=== PATIENT | female | born 1980 | race Caucasian/White ===

== ENCOUNTER 2019-11-27 09:34 | Inpatient (IN) | payer BC, OTHER ==
[2019-11-23 15:49] LABS: BASOPHILS # (AUTO) 0.1 (0.0-0.1); BASOPHILS % 0.8 % (0.0-1.0); EOSINOPHILS # (AUTO) 0.6 (0.0-0.4); EOSINOPHILS % 6.4 % (0.0-6.0); HEMATOCRIT 40.4 % (34.2-44.1); LYMPHOCYTES # (AUTO) 2.7 (1.0-3.2); LYMPHOCYTES % 30.1 % (18.0-39.1); MEAN CORPUSCULAR HEMOGLOBIN 27.1 pg (28-32); MEAN CORPUSCULAR HGB CONC 32.2 g/dL (31-35); MEAN CORPUSCULAR VOLUME 84.3 fL (81-99); MONOCYTES # (AUTO) 0.6 (0.2-0.8); MONOCYTES % 7.1 % (4.4-11.3); NEUTROPHILS # (AUTO) 4.9 (2.1-6.9); NEUTROPHILS % 55.2 % (38.7-80.0); PLATELET COUNT 302 x10e3/uL (140-360); RED BLOOD COUNT 4.79 x10e6/uL (3.6-5.1); RED CELL DISTRIBUTION WIDTH 14.1 % (11.7-14.4)
[2019-11-23 16:06] LABS: ANION GAP 18.8 mmol/L (8-16); BLOOD UREA NITROGEN 10 mg/dL (7-26); BUN/CREATININE RATIO 11 (6-25); CALCIUM 9.8 mg/dL (8.4-10.2); CARBON DIOXIDE 21 mmol/L (22-29); CHLORIDE 104 mmol/L (98-107); CREATININE, SERUM 0.87 mg/dL (0.57-1.11); EST GLOMERULAR FILTRATION RATE > 60 ML/MIN (60-); GLUCOSE 76 mg/dL (74-118); POTASSIUM 4.8 mmol/L (3.5-5.1); SODIUM 139 mmol/L (136-145)
[~2019-11-27] VITALS: Ht 167.6 cm; Wt 133.8 kg
[~2019-11-27 09:34] MED LIST: ALLEGRA ALLERGY60 MG PO; ENSTILAR 0.005%60 GM TOP; HEATHER0.35 MG PO; LATANOPROST2.5 ML PO; METFORMIN HCL500 MG PO; OTEZLA30 MG PO; SPIRONOLACTONE25 MG PO; VENLAFAXINE HCL75 MG PO
[2019-11-27] MEDS ORDERED: CEFAZOLIN SOD 1 GM/NS 50ML 100 ML IV ONE (10:30)
[2019-11-27] MEDS ORDERED: SCOPOLAMINE 1.5 MG PATCH ONE ×2 (10:31→11:15)
[2019-11-27] MEDS ORDERED: LIDOCAINE HCL (LTA) 4 ML SOLN ONE (10:31)
[2019-11-27] MEDS ORDERED: BUPIVACAINE 0.25% 30ML SDV INJ ONE (11:24)
[2019-11-27] MEDS ORDERED: SCOPOLAMINE 1.5 MG PATCH TOP SCH (11:30)
[2019-11-27] MEDS ORDERED: LIDOCAINE HCL 2% JELLY 5 ML TUBE ONE (13:22)
[2019-11-27] MEDS ORDERED: PROPOFOL IV EMULSION 10 MG/ML 20 ML VIAL ONE (13:22)
[2019-11-27] MEDS ORDERED: KETOROLAC TROMETHAMINE 30 MG/ML VIAL ONE (13:22)
[2019-11-27] MEDS ORDERED: GLYCOPYRROLATE INJ 0.2 MG/ML VIAL ONE (13:22)
[2019-11-27] MEDS ORDERED: LIDOCAINE HCL 2% LOCAL INJ 5 ML SDV VIAL INJ ONE (13:22)
[2019-11-27] MEDS ORDERED: SEVOFLURANE INHAL SOLN 250 ML PEN BTL ONE (13:22)
[2019-11-27] MEDS ORDERED: ONDANSETRON HCL INJ 2MG/ML 2ML 2 MG/ML VIAL ONE (13:22)
[2019-11-27] MEDS ORDERED: ROCURONIUM BROMIDE 10 MG/ML 5ML VIAL IV ONE (13:22)
[2019-11-27] MEDS ORDERED: NEOSTIGMINE 1 MG/ML 10ML VIAL ONE (13:22)
[2019-11-27] MEDS ORDERED: DEXAMETHASONE SOD PHOS INJ 4 MG/ML VIAL ONE (13:22)
--- NOTE | 2019-11-27 13:34 | Operative Report ---
DATE OF PROCEDURE: 11/27/2019 SURGEON: Riki Gilbert MD PREOPERATIVE DIAGNOSES: 1. Morbid obesity, BMI 49. 2. Hypertension. POSTOPERATIVE DIAGNOSES: 1. Morbid obesity, BMI 49. 2. Hypertension. PREOPERATIVE INDICATION: Treat disease, prevent complications related to comorbid conditions of obesity. PROCEDURE: Laparoscopic vertical sleeve gastrectomy. ANESTHESIA: General. WOOD CABINET FINISHER: Jacinto Abbasi, surgical 1st visitor service assistant (needed due to complexity of case). FLUIDS: 1 L crystalloid. EBL: 20 mL. DRAINS: None. COMPLICATIONS: None. SPECIMENS: Partial stomach. GRAFTS: None. FINDINGS: 1. Normal upper GI anatomy. 2. Negative intraoperative leak test. PROCEDURE IN DETAIL: The patient was brought to the operating room. She was intubated under general endotracheal anesthesia. She was positioned supine with both arms abducted and all pressure points appropriately padded. She was sterilely prepped and draped in the usual fashion. A preprocedure pause was performed identifying the patient, use of perioperative antibiotics, intended procedure, and staff surgeon. Access was gained via a 5 mm left subcostal incision using a Veress needle. The abdomen was insufflated. Four additional trocars were placed in the standard positions. The liver retractor was used to expose the hiatus and stomach. The greater curvature of the stomach was mobilized using the [place] LigaSure device from about 3 cm proximal to the pyloric valve to the left trung of diaphragm using the [place] LigaSure device. Once that was complete, I then had anesthesia pushed forward a 32-Kiswahili sizing bougie along the lesser curvature of the stomach. The greater curvature of the stomach was then resected with five firings of a 60 mm purple load Human[employer] stapling device which was reinforced with TRS. Once that was completed, we then submerged the sleeve under saline and did a leak test. No leaks were identified. The specimen was removed through the right periumbilical port site. The port site was closed with 0 Vicryl suture using a Andrez Montano technique. We then verified hemostasis, removed the liver retractor and desufflated the abdomen. Trocars were removed. Incision sites were closed with 4-0 Monocryl suture in a subcuticular fashion. Dermabond dressings were applied, 0.25% bupivacaine was used both the preperitoneal incision sites. The patient tolerated the procedure well. Type of wound is type 2, clean, contaminated. All surgical sponge and instrument counts were correct. MD MICAELA Quiles/KEARAL /[id number]
[2019-11-27] MEDS ORDERED: MIDAZOLAM HCL 2 MG/2 ML VIAL ONE (13:37)
[2019-11-27] MEDS ORDERED: FENTANYL CITRATE/PF 100MCG/2 ML INJ ONE ×2 (13:37→13:39)
[2019-11-27] MEDS ORDERED: PROMETHAZINE HCL (IM) 25 MG/ML VIAL IM ONE (13:39)
[2019-11-27] MEDS ORDERED: METOCLOPRAMIDE HCL 10 MG/2ML VIAL ONE (14:03)
[2019-11-27] MEDS ORDERED: HYDROMORPHONE 1MG/1ML INJ ONE (15:18)
--- NOTE | 2019-11-27 15:36 | History and Physical ---
CHIEF COMPLAINT: "I underwent weight loss surgery." HISTORY OF PRESENT ILLNESS: This is a 39-year-old white woman, who was initially admitted to [facility] with diagnosis of extreme obesity, BMI 49, complicated underlying polycystic ovarian disease, and psoriasis. Today, the patient underwent successful laparoscopic vertical sleeve gastrectomy. This was performed by her bariatric surgeon, namely Dr. Riki Gilbert. The patient states at this time she does have some abdominal pain, but it is controllable with medications. The patient denies any nausea or vomiting. The patient denies any belching or flatus. Hemoglobin performed on November 23, 2019, was 13 g/dL with white blood cell count of 8900 and 55% segmented neutrophils. The patient's BUN and creatinine were 10 and 0.87 respectively on November 23, 2019. REVIEW OF SYSTEMS: GENERAL: Weight has been stable. No fever or chills. HEENT: No headaches. No visual changes. CARDIOVASCULAR/RESPIRATORY: No chest pain. No shortness of breath or cough. GI: Complains of some abdominal pain. Denies any nausea or vomiting. Denies any belching or flatus. : No Gilbert catheter in place. NEUROMUSCULAR: Denies any limb weakness or numbness. ALLERGIES: TOPICAL BENZOIN. PAST SURGICAL HISTORY: 1. Laparoscopic vertical sleeve gastrectomy today. 2. section twice. 3. Laparoscopic cholecystectomy. PAINTER HELPER: History no gestational diabetes or preeclampsia during her two pregnancies. PAST MEDICAL HISTORY: 1. Extreme obesity, BMI 49. 2. Polycystic ovarian disease. 3. Psoriasis. 4. Depression with anxiety .. FAMILY HISTORY: Sister of carcinoma of unknown origin. SOCIAL HISTORY: This woman is , lives with . 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 No history of tobacco use. The patient drinks alcohol rarely. MEDICATIONS: 1. Otezla 30 mg b.i.d. 2. Enstilar 0.005%/0.064% apply topically at night. 3. Fexofenadine 60 mg daily. 4. Latanoprost 2.5 drops once daily. 5. Metformin 1000 mg b.i.d. 6. Oral contraceptives (norethindrone) 0.35 mg p.o. at bedtime. 7. Spironolactone 100 mg once daily (for her male pattern balding). 8. Venlafaxine 150 mg daily. PHYSICAL EXAMINATION: GENERAL: She is somnolent, but arousable. She is in no obvious distress. She is fully oriented. She is very pleasant and cooperative on exam. HEENT: Height 5 feet, 5 inches, weight 295 pounds, BMI is 49. Blood pressure is 136/56, heart rate 104, and oxygen saturation 100% on room air. She is afebrile. Respiratory rate is 16. INTEGUMENT: Skin is warm and dry. No pallor, jaundice, or diaphoresis. HEENT: Anicteric sclerae. Moist mucous membranes. NECK: Supple. CARDIOVASCULAR: Tachycardic rate with regular rhythm. LUNGS: No rales. No rhonchi. No wheezes. ABDOMEN: Obese. No bowel sounds are auscultated. The patient's laparoscopic surgical incisions are clean, dry, and intact. EXTREMITIES: No edema or deformity. She is currently wearing sequential compression devices in her lower legs. NEUROLOGICAL: Intact. DIAGNOSES: 1. Status post laparoscopic sleeve gastrectomy today. 2. Extreme obesity, BMI 49. 3. Polycystic ovarian disease. 4. Psoriasis. PLAN: 1. Pain control. 2. Encourage incentive spirometry usage to prevent atelectasis. 3. Resume home medications. 4. Intravenous fluids. 5. Start enoxaparin to prevent deep venous thrombosis and pulmonary thromboembolism. 6. Follow hemoglobin and hematocrit as well as renal function and electrolytes. I spent 45 minutes in the care of this patient. I would like to thank, Dr. Gilbert, for involving me in the care of this patient. MD SANYA Go/SINAN /[id number]
--- NOTE | 2019-11-27 16:45 | NUR ---
RECEIVED PATIENT FROM PACU. PATIENT A/O X3, EVEN RESPIRATIONS ON 2LNC. NO S/S OF DISTRESS. 5 TROCAR SITES TO ABDOMEN NO DRAINAGE. MARIA M HOSE AND SCD's BILATERALLY. LEFT AC 20 GAUGE IV WITH IVF INFUSING. PATIENT HAS VOIDED SINCE SURGERY. ORIENTED PATIENT TO ROOM AND CALL LIGHT. CALL LIGHT IN REACH WILL CONTINUE TO MONITOR PATIENT.
--- OUTSIDE RECORDS SUMMARY | 2019-11-27 17:08 | XMS REPORT | Continuity of Care Document ---
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 [facility], ANKIT haskins BRONCHITIS Inactive 02/28/2013 Condition 12/16/2013 [facility] PHYSICAL EXAMINATION Active 01/02/2013 Condition 12/16/2013 [facility] Body mass index 40+ - severely obese (finding) Active Problem 09/30/2019 [facility] Group, ANKIT [place]ata Morbid obesity (disorder) Acti ve Problem [facility], [facility], OPIMelissa Plata Polycystic ovaries (disorder) [facility] [place] Migraine (disorder) Resolved Problem 09/30/2019 Medical [facility] [place] Respiratory tract infection (disorder) Active Problem Medical Group, ANKIT Plata Medications Medication Details Route Status Patient Instructions Ordering Provider Order Date Source venlafaxine 150 mg oral capsule, extended release 150 mg = 1 cap, PO, Daily, # 90 cap, 1 Refill(s), Pharmacy: [facility], 167.64, cm, 04/20/19 16:25:00 PATIENT SERVICE ASSOCIATE, Height, 132.273, kg, 04/20/19 16:25:00 PATIENT SERVICE ASSOCIATE, Weight Active 09/27/2019 [facility] Amoxicillin 875 MG / Clavulanate 125 MG Oral Tablet [Augmentin 875-mg] 875 mg = 1 tab, PO, BID, X 10 day, # 20 tab, 0 Refill(s), Pharmacy: [facility]/pharmacy #[id number] Active 04/20/2019 [facility] Dextromethorphan 3 MG/ML / Promethazine Hydrochloride 1.25 MG/ML Oral Solution 5 mL, PO, Q4H, PRN for cough, X 6 day, # 200 mL, 1 Refill(s), Pharmacy: [facility]/pharmacy #[id number] Active 04/20/2019 [facility] Amoxicillin 875 MG / Clavulanate 125 MG Oral Tablet [Augmentin 875-mg] 875 mg = 1 tab, PO, BID, X 10 day, # 20 tab, 0 Refill(s), Pharmacy: [facility] Inactive 04/20/2019 [facility] Dextromethorphan 3 MG/ML / Promethazine Hydrochloride 1.25 MG/ML Oral Solution 5 mL, PO, Q4H, PRN for cough, X 6 day, # 200 mL, 1 Refill(s), Pharmacy: [facility] Inactive 04/20/2019 [facility] metFORMIN 500 mg oral tablet, extended release = 2 tab, PO, BID, # 360 tab, 4 Refill(s), Pharmacy: [facility] Active 02/24/2019 [facility] venlafaxine 150 mg oral capsule, extended release 150 mg = 1 cap, PO, Daily, # 90 cap, 1 Refill(s), Pharmacy: [facility] Active 02/24/2019 [facility] Group apremilast 30 MG Oral Tablet [Otezla] 30 mg = 1 tab, PO, BID, 0 Refill(s) Active 02/24/2019 [facility] Group spironolactone 100 mg oral tablet 100 mg = 1 tab, PO, Daily, # 90 tab, 1 Refill(s) Active 02/24/2019 [facility] venlafaxine 150 mg oral capsule, extended release See Instructions, TAKE 1 CAPSULE DAILY, # 90 tab, 1 Refill(s), Pharmacy: [facility] Active 12/19/2018 [facility] Metformin hydrochloride 500 MG Oral Tablet 1,000 mg = 2 tab, PO, BID, # 180 tab, 1 Refill(s), Pharmacy: [facility] Active 05/25/2018 [facility] venlafaxine 150 mg oral capsule, extended release See Instructions, TAKE 1 CAPSULE DAILY, # 90 tab, 1 Refill(s), Pharmacy: [facility] Active 05/25/2018 [facility] Paroxetine Hydrochloride 20 MG Oral Tablet = 1 tab, PO, Daily, # 90 tab, 1 Refill(s), Pharmacy: [facility] Active 05/25/2018 [facility] Paroxetine Hydrochloride 20 MG Oral Tablet = 1 tab, PO, Daily, # 90 tab, 1 Refill(s), Pharmacy: [facility]/pharmacy #[id number] No Longer Active 05/06/2018 [facility] Fluticasone propionate 0.05 MG/ACTUAT Me tered Dose Nasal [place] 2 spray, NASAL, Daily, in each nostril, # 16 gm, 2 Refill(s), Pharmacy: [facility]/pharmacy #[id number] Active 03/11/2018 [facility] Group 24 HR lorcaserin hydrochloride 20 MG Ext ended Release Oral Tablet [Belviq] 20 mg = 1 tab, PO, Daily, # 90 tab, 1 Re fill(s) Active 03/11/2018 [facility] Paroxetine 20 MG Oral Tablet [Paxil] 20 mg = 1 tab, PO, Daily, # 30 tab, 1 Refill(s), Pharmacy: [facility]/pharmacy #[id number] No Longer Active 03/11/2018 [facility] cefdinir 300 MG Oral Capsule 3 00 mg = 1 cap, PO, BID, X 10 day, # 20 cap, 0 Refill(s), Pharmacy: [facility]/pharmacy #[id number] No Longer Active 02/15/2018 [facility] Codeine Phosphate 2 MG/ML / Guaifenesin 20 MG/ML Oral Solution [Cheratussin] 5 mL, PO, Q6H, PRN cough, X 6 day, # 120 mL, 0 Refill(s) No Longer Active 02/14/2018 [facility] 200 ACTUAT Albuterol 0.09 MG/ACTUAT Mete red Dose Inhaler [ProAir HFA] 2 puff, INHALER, Q4H, PRN wheezing, coug emilia, or shortness of breath, # 1 ea, 1 Refill(s), other Inactive 02/14/2018 [facility] 120 ACTUAT Beclomethasone Dipropionate 0 .08 MG/ACTUAT Metered Dose Inhaler [Qvar] 160 microgram = 2 inhalation, PO, BID, # 1 ea, 0 Refill(s), other Active 02/14/2018 [facility] DME Prescription See Jocelynei ANIBAL michelleC, ONCE, adjustable bed frame to improve low back pain, # 1 ea, 0 Refill(s) Active 10/27/2017 [facility] 3 ML liraglutide 6 MG/ML Prefilled Syringe [Saxenda] 1.2 mg, SUB-Q, Daily, # 6 mL, 3 Refill(s), Pharmacy: [facility]/pharmacy #[id number] Active 08/11/2017 [facility] {21 (Methylprednisolone 4 MG Oral Tablet [Medrol]) } Pack [Medrol Dosepak] See Instructions, PO, Take by mouth as d irected on label., # 1 Pack, 0 Refill(s), Pharmacy: [facility]/pharmacy #[id number] No Longer Active 06/25/2017 [facility] 200 ACTUAT Albuterol 0.09 MG/ACTUAT Mete red Dose Inhaler [ProAir HFA] 2 puff, INHALER, Q6H, PRN wheezing, coug emilia, or shortness of breath, # 1 ea, 1 Refill(s), Pharmacy: [facility]/pharmacy #[id number] Active 06/25/2017 [facility] Codeine Phosphate 2 MG/ML / Guaifenesin 20 MG/ML Oral Solution [Cheratussin] 5 mL, PO, Q6H, PRN cough, X 6 day, # 120 mL, 0 Refill(s) No Longer Active 06/25/2017 [facility] Amoxicillin 875 MG / Clavulanate 125 MG Oral Tablet [Augmentin 875-mg] 875 mg = 1 tab, PO, Q12H, X 10 day, # 20 tab, 0 Refill(s), Pharmacy: [facility]/pharmacy #[id number] No Longer Active 06/21/2017 [facility] {28 (Norethindrone 0.35 MG Oral Tablet) } Pack [Alyson 28 Day] 0.35 mg = 1 tab, PO, Daily, 0 Refill(s) Active 06/21/2017 [facility] Sudafed PO, Q6H, 0 Refill(s) Active 06/21/2017 [facility] azithromycin 250 mg oral tablet See Instructions, Take 2 tablets by mouth the first day then 1 tablet by mouth daily on days 2-5., X 5 day, # 6 tab, 0 Refill(s), Pharmacy: [facility]/pharmacy #[id number] No Longer Active 05/20/2017 [facility] Depo-Medrol 80 mg, Route: IM, Drug form: SUSP, ONCE, Dosing Weight 131.051, kg, Start date: 05/20/17 9:37:00 PATIENT SERVICE ASSOCIATE, Stop date: 05/20/17 9:37:00 PATIENT SERVICE ASSOCIATE Inactive 05/20/2017 [facility] Codeine Phosphate 2 MG/ML / Guaifenesin 20 MG/ML Oral Solution [Cheratussin] 5 mL, PO, Q6H, PRN cough, X 6 day, # 120 mL, 0 Refill(s) No Longer Active 05/20/2017 [facility] Phentermine Hydrochloride 37.5 MG Oral Tablet 37.5 mg = 1 tab, PO, Daily, # 30 tab, 0 Refill(s) No Longer Active 05/20/2017 [facility] Spironolactone 25 mg = 2 tab, PO, Daily, # 60 tab, 0 Refill(s) No Longer Active 05/20/2017 [facility] lorcaserin hydrochloride 10 MG Oral Tablet [Belviq] 10 mg = 1 tab, PO, BID, # 60 tab, 1 Refill(s) No Longer Active 04/23/2017 [facility] Phentermine Hydrochloride 37.5 MG Oral Tablet 37.5 mg = 1 tab, PO, Daily, X 30 day, # 90 tab, 1 Refill(s) No Longer Active 04/02/2017 [facility] Dexamethasone 8 mg, Route: IV, POST OP, Dosing Weight 127.273, kg, Start date: 01/27/16 12:00:00 PATIENT SERVICE ASSOCIATE Inactive 01/27/2016 [facility] Promethazine 6.25 mg, Route: I VPB, ONCE, Dosing Weight 127.273, kg, PRN Nausea & Vomiting, Start date: 01/27/16 11:45:00 PATIENT SERVICE ASSOCIATE Inactive 01/27/2016 [facility] Dexamethasone 4 mg, Route: IVP , ONCE, Dosing Weight 127.273, kg, PRN Nausea & Vomiting, Start date: 01/27/16 11:45:00 PATIENT SERVICE ASSOCIATE Inactive 01/27/2016 [facility] Ondansetron 4 mg, Route: IVP, ONCE, Dosing Weight 127.273, kg, PRN Nausea & Vomiting, Start date: 01/27/16 11:45:00 PATIENT SERVICE ASSOCIATE Inactive 01/27/2016 [facility] Oxycodone 10 mg, Route: PO, Dr ug form: TAB, Q4H, Dosing Weight 127.273, kg, PRN Pain Score 7-10, Start date: 01/27/16 11:45:00 PATIENT SERVICE ASSOCIATE, Duration: 30 day, Stop date: 02/26/16 11:44:00 PATIENT SERVICE ASSOCIATE Inactive 01/27/2016 [facility] Acetaminophen 1,000 mg, Route: PO, Drug form: TAB, ONCE, Dosing Weight 127.273, kg, PRN Pain Score 1-3, Start date: 01/27/16 11:45:00 PATIENT SERVICE ASSOCIATE, Duration: 1 doses or times, Stop date: Limited # of times Inactive 01/27/2016 [facility] Naloxone 0.4 mg, Route: IVP, Q 2MIN, Dosing Weight 127.273, kg, PRN Narcotic Reversal, Start date: 01/27/16 11:45:00 PATIENT SERVICE ASSOCIATE, Duration: 8 doses or times, Stop date: Limited # of times Inactive 01/27/2016 [facility] Labetalol 10 mg, Route: IVP, Q 5Min, Dosing Weight 127.273, kg, PRN Elevated BP, Start date: 01/27/16 11:45:00 PATIENT SERVICE ASSOCIATE, Duration: 5 doses or times, Stop date: Limited # of times Inactive 01/27/2016 [facility] esmolol 10 mg, Route: IVP, Q5M in, Dosing Weight 127.273, kg, PRN Other -See Comment, Start date: 01/27/16 11:45:00 PATIENT SERVICE ASSOCIATE, Duration: 5 doses or times, Stop date: Limited # of times Inactive 01/27/2016 [facility] Hydralazine 10 mg, Route: IVP, Q20Min, Dosing Weight 127.273, kg, PRN Elevated BP, Start date: 01/27/16 11:45:00 PATIENT SERVICE ASSOCIATE, Duration: 2 doses or times, Stop date: Limited # of times Inactive 01/27/2016 [facility] Sodium Chloride 0.154 MEQ/ML Injectable Solution 500 mL, Rate: 125 ml/hr, Infuse over: 4 hr, Route: IV, Dosing Weight 127.273 kg, Total Volume: 500, Start date: 01/27/16 11:45:00 PATIENT SERVICE ASSOCIATE, Duration: 30 day, Stop date: 02/26/16 11:44:00 PATIENT SERVICE ASSOCIATE Inactive 01/27/2016 [facility] Meperidine 12.5 mg, Route: IVP , Q30Min, Dosing Weight 127.273, kg, PRN Other -See Comment, For shivering, Start date: 01/27/16 11:45:00 PATIENT SERVICE ASSOCIATE, Duration: 2 doses or times, Stop date: Limited # of times Inactive 01/27/2016 [facility] Diphenhydramine 12.5 mg, Route : IVP, Drug form: INJ, Q6H, Dosing Weight 127.273, kg, PRN Itching, Start date: 01/27/16 11:45:00 PATIENT SERVICE ASSOCIATE, Duration: 30 day, Stop date: 02/26/16 11:44:00 PATIENT SERVICE ASSOCIATE Inactive 01/27/2016 [facility] Flumazenil 0.2 mg, Route: IVP, PRN, Dosing Weight 127.273, kg, PRN Benzodiazepine Reversal, Initial dose, Start date: 01/27/16 11:45:00 PATIENT SERVICE ASSOCIATE, Duration: 30 day, Stop date: 02/26/16 11:44:00 PATIENT SERVICE ASSOCIATE Inactive 01/27/2016 [facility] Hydromorphone 0.5 mg, Route: I SENIOR INVESTMENT MANAGER, Q5Min, Dosing Weight 127.273, kg, PRN Pain Score 7-10, Start date: 01/27/16 11:45:00 PATIENT SERVICE ASSOCIATE, Duration: 4 doses or times, Stop date: Limited # of times Inactive 01/27/2016 [facility] Calcium Chloride 0.0014 MEQ/ML / Potassi um Chloride 0.004 MEQ/ML / Sodium Chloride 0.103 MEQ/ML / Sodium Lactate 0.028 MEQ/ML Injectable Solution 1,000 mL, Rate: 125 ml/hr, Infuse over: 8 hr, Route: IV, Dosing Weight 127.273 kg, Total Volume: 1,000, Start date: 01/27/16 11:45:00 PATIENT SERVICE ASSOCIATE, Duration: 30 day, Stop date: 02/26/16 11:44:00 PATIENT SERVICE ASSOCIATE Inactive 01/27/2016 [facility] acetaminophen (ANES) Route: IV , Drug form: INJ, ONCE, Stop date: 01/27/16 11:05:00 PATIENT SERVICE ASSOCIATE Inactive 01/27/2016 [facility] cefOXitin (ANES) Route: IV, Dr ug form: INJ, ONCE, Stop date: 01/27/16 11:05:00 PATIENT SERVICE ASSOCIATE Inactive 01/27/2016 [facility] Acetaminophen 300 MG / Codeine Phosphate 30 MG Oral Tablet [Tylenol with Codeine #3] 1 tab, PO, Q6H, PRN pain, X 7 day, # 28 tab, 0 Refill(s) Active 01/27/2016 [facility] Docusate Sodium 100 MG Oral Capsule [Colace] 100 mg = 1 cap, PO, BID, PRN Constipation, # 20 cap, 0 Refill(s), Pharmacy: [facility]/pharmacy #[id number] Active 01/27/2016 [facility] neostigmine (ANES) Route: IV, Drug form: INJ, ONCE, Stop date: 01/27/16 11:05:00 PATIENT SERVICE ASSOCIATE Inactive 01/27/2016 [facility] glycopyrrolate (ANES) Route: I V, Drug form: INJ, ONCE, Stop date: 01/27/16 11:05:00 PATIENT SERVICE ASSOCIATE Inactive 01/27/2016 [facility] phenylephrine (ANES) Route: IV , Drug form: INJ, ONCE, Stop date: 01/27/16 11:05:00 PATIENT SERVICE ASSOCIATE Inactive 01/27/2016 [facility] ondansetron (ANES) Route: IV, Drug form: INJ, ONCE, Stop date: 01/27/16 11:05:00 PATIENT SERVICE ASSOCIATE Inactive 01/27/2016 [facility] scopolamine (ANES) Route: RIGH T EAR, Drug form: ERFILM, ONCE, Stop date: 01/27/16 11:05:00 PATIENT SERVICE ASSOCIATE Inactive 01/27/2016 [facility] ketOROLAC (ANES) IV, ONCE Inactive 01/27/2016 [facility] fentaNYL (ANES) Route: IV, Mark g form: INJ, ONCE, Stop date: 01/27/16 11:04:00 PATIENT SERVICE ASSOCIATE Inactive 01/27/2016 [facility] lidocaine (ANES) Route: IV, Dr ug form: INJ, ONCE, Stop date: 01/27/16 11:04:00 PATIENT SERVICE ASSOCIATE Inactive 01/27/2016 [facility] propofol (ANES) Route: IV, Mark g form: INJ, ONCE, Stop date: 01/27/16 11:04:00 PATIENT SERVICE ASSOCIATE Inactive 01/27/2016 [facility] rocuronium (ANES) Route: IV, D rug form: INJ, ONCE, Stop date: 01/27/16 11:04:00 PATIENT SERVICE ASSOCIATE Inactive 01/27/2016 [facility] midazolam (ANES) Route: IV, Dr ug form: SOLN, ONCE, Stop date: 01/27/16 11:04:00 PATIENT SERVICE ASSOCIATE Inactive 01/27/2016 [facility] LR 1000 mL INJ (ANES) Route: I V, Total Volume: 1,000, Start date: 01/27/16 10:10:00 PATIENT SERVICE ASSOCIATE, Stop date: 01/27/16 11:10:00 PATIENT SERVICE ASSOCIATE Inactive 01/27/2016 [facility] Albuterol 0.833 MG/ML / Ipratropium Brom geena 0.167 MG/ML Inhalant Solution Notes: (Same as: Linette) Inactive 01/27/2016 [facility] Calcium Chloride 0.0014 MEQ/ML / Potassi um Chloride 0.004 MEQ/ML / Sodium Chloride 0.103 MEQ/ML / Sodium Lactate 0.028 MEQ/ML Injectable Solution 1,000 mL, Rate: 25 ml/hr, Infuse over: 4 0 hr, Route: IV, Dosing Weight 127.273 kg, Total Volume: 1,000, Start date: 01/27/16 8:40:00 PATIENT SERVICE ASSOCIATE, Duration: 1 day, Stop date: 01/28/16 8:39:00 PATIENT SERVICE ASSOCIATE Inactive 01/27/2016 [facility] Sodium Chloride 0.154 MEQ/ML Injectable Solution 500 mL, Rate: 25 ml/hr, Infuse over: 20 hr, Route: IV, Dosing Weight 127.273 kg, Total Volume: 500, Start date: 01/27/16 8:40:00 PATIENT SERVICE ASSOCIATE, Duration: 1 day, Stop date: 01/28/16 8:39:00 PATIENT SERVICE ASSOCIATE Inactive 01/27/2016 [facility] TH VITAMINS 28-0.8 MG TABS Active 12/16/2013 [facility] CLOTRIMAZOLE 10 MG TROC one 5 x a day sorethroat Active 12/16/2013 [facility] ZITHROMAX Z-CHANDA 250 MG TABS us e as directed No Longer Active 02/28/2013 [facility] GLUCOPHAGE XR 500 MG [id number] 4 po daily No Longer Active 02/28/2013 [facility] TUSSIONEX PENNKINETIC ER 8-10 MG/5ML LQCR 1 tsp PO qhs prn cough No Longer Active 02/28/2013 [facility] Allergies, Adverse Reactions, Alerts Substance Category Reaction Severity Reaction type Status Date Reported Comments Source Tape Assertion Drug allergy Active [facility] Immunizations Immunization Date Given Site Status Last Updated Comments Source Hx influenza vaccine-unspecified 11/21/2018 completed W atts [facility] hepatitis A-hepatitis B vaccine 04/02/2017 Right deltoid completed Alf[facility], [facility] [place] hepatitis A-hepatitis B vaccine<sup>1</sup> 10/07/2016 Right deltoid completed Alfie Result Comment: No react ion [facility], [facility] [place] hepatitis A-hepatitis B vaccine 09/08/2016 Left deltoid completed [facility] Results Order Name Results Value Reference Range Date Interpretation Comments Source URINE CHEM U Preg Negat cuate (01/27/16 8:32 AM) Negative 01/27/2016 [facility] CHEM PANEL B/C Ratio 8 6 - 25 01/21/2016 [facility] CHEM PANEL AGAP 11.0 10.0 - 20.0 01/21/2016 [facility] CHEM PANEL Globulin 4.1 2.7 - 4.2 01/21/2016 [facility] CHEM PANEL A/G Ratio 0.8 0.7 - 1.6 01/21/2016 [facility] CHEM PANEL eGFR 96 01/21/2016 Result Comment: The eGFR is calculated using the CKD-EPI formula. In most young, healthy individuals the eGFR will be >90 mL/min/1.73m2. The eGFR declines with age. An eGFR of 60-89 may be normal in some populations, particularly the elderly, for whom the CKD-EPI formula has not been extensively validated. Use of the eGFR is not recommended in the following populations:

Individuals with unstable creatinine concentrations, including patients and those with serious co-morbid conditions.

Patients with extremes in muscle mass or diet.

The data above are obtained from the National Kidney Disease Education Program (NKDEP) which additionally recommends that when the eGFR is used in patients with extremes of body mass index for purposes of drug dosing, the eGFR should be multiplied by the estimated BMI. [facility] CHEM PANEL Bili Total 0.3 0.2 - 1.3 01/21/2016 [facility] CHEM PANEL Alk Phos 95 39 - 136 01/21/2016 [facility] CHEM PANEL AST 19 0 - 37 01/21/2016 [facility] CHEM PANEL ALT 64 0 - 65 01/21/2016 [facility] CHEM PANEL Albumin Lvl 3.2 3.5 - 5.0 01/21/2016 [facility] CHEM PANEL Glucose Lvl 75 70 - 99 01/21/2016 [facility] CHEM PANEL CO2 26 24 - 32 01/21/2016 [facility] CHEM PANEL Calcium Lvl 8.1 8.5 - 10.5 01/21/2016 [facility] CHEM PANEL Total Protein 7.3 6.4 - 8.4 01/21/2016 [facility] CHEM PANEL Chloride Lvl 105 95 - 109 01/21/2016 [facility] CHEM PANEL Sodium Lvl 138 135 - 145 01/21/2016 [facility] CHEM PANEL Potassium Lvl 4.0 3.5 - 5.1 01/21/2016 [facility] CHEM PANEL BUN 6 7 - 22 01/21/2016 [facility] CHEM PANEL Creatinine Lvl 0.80 0.50 - 1.40 01/21/2016 [facility] ENDOCRINOLOGY S Preg Ne gative *NA* (01/21/16 2:48 PM) Negative 01/21/2016 [facility] HEMATOLOGY MPV 8.1 7.4 - 10.4 01/21/2016 [facility] MCHC 32.4 32.0 - 36.0 01/21/2016 [facility] HEMATOLOGY MCH 27.7 27.0 - 31.0 01/21/2016 [facility] HEMATOLOGY MCV 85.4 80.0 - 98.0 01/21/2016 [facility] HEMATOLOGY Platelet 240 133 - 450 01/21/2016 [facility] HEMATOLOGY RDW 13.9 11.5 - 14.5 01/21/2016 [facility] HEMATOLOGY WBC 8.7 3.7 - 10.4 01/21/2016 [facility] HEMATOLOGY Hgb 13.5 12.0 - 16.0 01/21/2016 [facility] HEMATOLOGY Hct 41.7 36.0 - 48.0 01/21/2016 [facility] HEMATOLOGY RBC 4.89 4.20 - 5.40 01/21/2016 [facility] HEMATOLOGY Segs 66.3 45.0 - 75.0 01/21/2016 [facility] HEMAT[facility]Y Monocytes 6.4 2.0 - 12.0 01/21/2016 [facility] HEMAT[facility]Y Eosinophils 2.2 0.0 - 4.0 01/21/2016 [facility] HEMATOLOGY Lymphocytes 24.6 20.0 - 40.0 01/21/2016 [facility] HEMATOLOGY Lymphocytes # 2.1 1.0 - 5.5 01/21/2016 [facility] HEMAT[facility] Eosinophils # 0.2 0.0 - 0.5 01/21/2016 [facility] HEMATOLOGY Monocytes # 0.6 0.0 - 0.8 01/21/2016 [facility] HEMATOLOGY Basophils 0.5 0.0 - 1.0 01/21/2016 [facility] HEMATOLOGY Segs-Bands # 5.8 1.5 - 8.1 01/21/2016 [facility] CHOLESTEROL 170 - 199 01/02/2013 [facility] TRIGLYCERIDE 209 - 149 01/02/2013 [facility] HDL 55 >=61 01/02/2013 [facility] SODIUM 141 MEQ/L 135 - 145 01/02/2013 [facility] POTASSIUM 4.6 MEQ/L 3.5 - 5.1 01/02/2013 [facility] CREATININE 0.7 0.5 - 1.4 01/02/2013 [facility] BUN 10 7 - 22 01/02/2013 [facility] BUN/CREAT 14 6 - 25 01/02/2013 [facility] ALBUMIN 3.6 3.5 - 5.0 01/02/2013 [facility] CALCIUM 9.7 8.5 - 10.5 01/02/2013 [facility] SGPT (ALT) 17 0 - 65 01/02/2013 [facility] SGOT (AST) 18 0 - 37 01/02/2013 [facility] ALK PHOS 91 39 - 136 01/02/2013 [facility] TSH 1.970 0.360 - 3.740 01/02/2013 [facility] CHOLESTEROL 170 - 199 01/02/2013 [facility] TRIGLYCERIDE 209 - 149 01/02/2013 [facility] HDL 55 >=61 01/02/2013 [facility] SODIUM 141 MEQ/L 135 - 145 01/02/2013 [facility] POTASSIUM 4.6 MEQ/L 3.5 - 5.1 01/02/2013 [facility] CREATININE 0.7 0.5 - 1.4 01/02/2013 [facility] BUN 10 7 - 22 01/02/2013 [facility] BUN/CREAT 14 6 - 25 01/02/2013 [facility] ALBUMIN 3.6 3.5 - 5.0 01/02/2013 [facility] CALCIUM 9.7 8.5 - 10.5 01/02/2013 [facility] SGPT (ALT) 17 0 - 65 01/02/2013 [facility] SGOT (AST) 18 0 - 37 01/02/2013 [facility] ALK PHOS 91 39 - 136 01/02/2013 [facility] TSH 1.970 0.360 - 3.740 01/02/2013 [facility] CHOLESTEROL 170 - 199 01/02/2013 [facility] TRIGLYCERIDE 209 - 149 01/02/2013 [facility] HDL 55 >=61 01/02/2013 [facility] LDL 73 - 99 01/02/2013 [facility] SODIUM 141 MEQ/L 135 - 145 01/02/2013 [facility] POTASSIUM 4.6 MEQ/L 3.5 - 5.1 01/02/2013 [facility] CREATININE 0.7 0.5 - 1.4 01/02/2013 [facility] BUN 10 7 - 22 01/02/2013 [facility] BUN/CREAT 14 6 - 25 01/02/2013 [facility] ALBUMIN 3.6 3.5 - 5.0 01/02/2013 [facility] CALCIUM 9.7 8.5 - 10.5 01/02/2013 [facility] SGPT (ALT) 17 0 - 65 01/02/2013 [facility] SGOT (AST) 18 0 - 37 01/02/2013 [facility] ALK PHOS 91 39 - 136 01/02/2013 [facility] TSH 1.970 0.360 - 3.740 01/02/2013 [facility] H[facility]ology HGB 12.2 12.0 - 16.0 01/02/2013 [facility] H[facility]ology HCT 35.8 36.0 - 48.0 01/02/2013 [facility] Hematology PLATELETS 383 K/CMM 133 - 450 01/02/2013 [facility] Hematology HGB 12.2 12.0 - 16.0 01/02/2013 [facility] Hematology HCT 35.8 36.0 - 48.0 01/02/2013 [facility] Hematology PLATELETS 383 K/CMM 133 - 450 01/02/2013 [facility] Hematology HGB 12.2 12.0 - 16.0 01/02/2013 [facility] Hematology HCT 35.8 36.0 - 48.0 01/02/2013 [facility] Hematology PLATELETS 383 K/CMM 133 - 450 01/02/2013 [facility] Urinalysis UA COLOR Yellow 01/02/2013 [facility] Urinalysis BACTERIA URN Few 01/02/2013 [facility] Urinalysis UA COLOR Yellow 01/02/2013 [facility] Urinalysis BACTERIA URN Few 01/02/2013 [facility] Urinalysis UA COLOR Yellow 01/02/2013 [facility] Urinalysis BACTERIA URN Few 01/02/2013 [facility] Pathology Reports No Data Provided for This Section Diagnostic Reports Report Value Date Source Hand 2 views Bilateral DX Clin ical Indication: - M25.50 Pain in unspecified joint Comparison: None FINDINGS: The 2 views each of the bilateral hands show normal alignment without fractures or dislocations. The digit and thumb interphalangeal joints are unremarkable. The metacarpophalangeal joints are unremarkable. The carpometacarpal joint regions are unremarkable. There is no soft tissue swelling or radiopaque foreign bodies. The visualized wrist region is grossly unremarkable. If there is further concern, recommend follow-up radiographs or bone scan for complete assessment. IMPRESSION: Unremarkable radiographs of the bilateral hands. SL: [id number] 08/19/2018 [facility] Spine lumbar 2 or 3 views DX S tudy: Lumbar spine, 3 views Clinical Indication: - M25.50 Pain in unspecified joint Comparison: None FINDINGS: Multiple views of the lumbar spine show 5 nonrib-bearing lumbar vertebra. No acute compression fracture or subluxation is seen. Mild marginal osteophytes with mild disc height loss throughout the lumbar spine are present, compatible with mild degenerative disc disease. Surgical clips in the right upper quadrant are seen. IMPRESSION: Mild degenerative disc disease throughout the lumbar spine. SL: [id number] 08/19/2018 [facility] Hip bilat w pelvis 3/4 views DX Patient Name: BALTAZAR MCCLURE : 1980; Age: 38 years y/o Female MR: [id number] BILATERAL HIPS AND PELVIS * RIGHT HIP (2 views) with frontal PELVIS History: right hip pain; Technique: Frontal neutral and frog-leg images of the right hip and a frontal radiograph of the pelvis were obtained. FINDINGS: There is no evidence of fracture, dislocation, or acute change. The joint space is well-maintained. There are no degenerative changes or other significant osseous abnormalities. The pelvic ring is intact. IMPRESSION: 1. Negative right hip and pelvis. * LEFT HIP (2 views) with frontal PELVIS History: left hip pain; Technique: Frontal neutral and frog-leg images of the left hip and a frontal radiograph of the pelvis were obtained. FINDINGS: There is no evidence of fracture, dislocation, or acute change. The joint space is well-maintained. There are no degenerative changes or other significant osseous abnormalities. The pelvic ring is intact. IMPRESSION: 1. Negative left hip and pelvis. SL: LAKSHMI 08/19/2018 [facility] Chest 2 views DX Clinical Sienna cation: - M25.50 Pain in unspecified joint Comparison: None FINDINGS: The PA and lateral chest radiographs shows normal lung volumes without interstitial or airspace opacities, pleural effusions or pneumothorax. The heart size and pulmonary vasculature are normal. The trachea is midline. There are no clinically significant osseous abnormalities noted. IMPRESSION: No chest radiographic evidence of acute cardiopulmonary disease. SL: [id number] 08/19/2018 [facility] Sacroiliac joints series DX St udy: Sacroiliac joints, 3 views Clinical Indication: - M25.50 Pain in unspecified joint Comparison: None FINDINGS: Multiple views of the bilateral sacroiliac joints show no acute bony fracture, joint dislocation, or discrete osseous erosion. No bony ankylosis is seen. Joint spaces are well-preserved. Bony mineralization is normal. IMPRESSION: Unremarkable exam of the bilateral sacroiliac joints. SL: [id number] 08/19/2018 [facility] Foot 2 views bilateral DX Clin ical Indication: - M25.50 Pain in unspecified joint Comparison: None FINDINGS: The 2 views each of the bilateral feet show normal alignment without fractures or dislocations. The toe interphalangeal joints, tarsometatarsal joints, metatarsophalangeal joints and subtalar joint are unremarkable. The talar dome is normal. There is no soft tissue swelling or radiopaque foreign bodies. There is no soft tissue gas or osseous erosive changes noted. Small plantar and dorsal calcaneal spurs are seen. If there is further concern, recommend follow-up radiographs or bone scan for complete assessment. IMPRESSION: Unremarkable radiographs of the bilateral feet SL: [id number] 08/19/2018 [facility] Chest 1view DX Clinical Indica tion: Cough, congestion; Comparison: None FINDINGS: AP chest radiographs shows normal lung volumes without interstitial or airspace opacities, pleural effusions or pneumothorax. The heart size and pulmonary vasculature are normal. The trachea is midline. There are no clinically significant osseous abnormalities noted. IMPRESSION: No chest radiographic evidence of acute cardiopulmonary disease. SL: [id number] 02/14/2018 [facility] Gallbladder US Patient Name: Per MCCLURE : 1980; Age: 35 years Female MR: [id number] Study: Gallbladder US 01/21/2016 1:36 PM PATIENT SERVICE ASSOCIATE Clinical Indication: upper abdominal pain. History of gallstones. COMPARISON: None TECHNIQUE: Grayscale and limited color sonographic evaluation of the right upper quadrant of the abdomen and gallbladder region was performed with standard technique. FINDINGS: LIVER: The liver measures 17.1 cm sagittally. There is normal parenchymal echotexture. BILE DUCTS: The intrahepatic and extrahepatic bile ducts are not dilated. The common bile duct measures 3.9 mm. The distal common bile duct is not well seen. GALLBLADDER: Numerous gallstones. Shadowing limits assessment of the pericholecystic area. PANCREAS: The pancreas body body is normal. The head and tail are obscured by bowel gas. KIDNEY: The right kidney measures 11.2 x 4.1 x 5.8 cm. The renal cortical thickness measures 1.5 cm. There is normal renal contour and morphology, with normal parenchymal echotexture. There is no hydronephrosis. AORTA AND INFERIOR VENA CAVA: The proximal IVC is visualized. ASCITES: There is no right upper quadrant abdominal ascites. IMPRESSION: 1. Cholelithiasis. Limited assessment o f the pericholecystic area secondary to shadowing. 2. Mild hepatomegaly. SL: [id number] 01/21/2016 [facility] Consultation Notes No Data Provided for This Section Discharge Summaries No Data Provided for This Section History and Physicals No Data Provided for This Section Vital Signs Vital Sign Value Date Comments Source Systolic (mm Hg) 119 04/20/2019 [facility] Diastolic (mm Hg) 84 04/20/2019 [facility] Heart Rate 105 04/20/2019 [facility] Temperature Oral (F) 97.2 F 04/20/2019 [facility] Height 167.64 cm 04/20/2019 [facility] Weight 132.273 04/20/2019 [facility] BMI Calculated 47.07 04/20/2019 [facility] Systolic (mm Hg) 115 02/24/2019 [facility] Diastolic (mm Hg) 81 02/24/2019 [facility] Heart Rate 95 02/24/2019 [facility] Temperature Oral (F) 98.4 F 02/24/2019 [facility] Height 167.64 cm 02/24/2019 [facility] Weight 132.636 02/24/2019 [facility] BMI Calculated 47.2 02/24/2019 [facility] BMI Calculated 50.07 03/11/2018 [facility] Weight 140.71 03/11/2018 [facility] Height 167.64 cm 03/11/2018 [facility] Temperature Oral (F) 98.4 F 03/11/2018 [facility] Heart Rate 84 03/11/2018 [facility] Systolic (mm Hg) 113 03/11/2018 [facility] Diastolic (mm Hg) 79 03/11/2018 [facility] Weight 140.256 02/14/2018 [facility] BMI Calculated 49.91 02/14/2018 [facility] Height 167.64 cm 02/14/2018 [facility] Temperature Oral (F) 97.8 F 02/14/2018 [facility] Heart Rate 101 02/14/2018 [facility] Systolic (mm Hg) 119 02/14/2018 [facility] Diastolic (mm Hg) 79 02/14/2018 [facility] Temperature Oral (F) 97.9 F 06/21/2017 [facility] BMI Calculated 46.91 06/21/2017 [facility] Weight 131.818 06/21/2017 [facility] Height 167.64 cm 06/21/2017 [facility] Systolic (mm Hg) 113 06/21/2017 [facility] Diastolic (mm Hg) 78 06/21/2017 [facility] Heart Rate 97 06/21/2017 [facility] BMI Calculated 46.63 05/20/2017 [facility] Weight 131.051 05/20/2017 [facility] Height 167.64 cm 05/20/2017 [facility] Temperature Oral (F) 98.7 F 05/20/2017 [facility] Heart Rate 108 05/20/2017 [facility] Systolic (mm Hg) 134 05/20/2017 [facility] Diastolic (mm Hg) 84 05/20/2017 [facility] Heart Rate 89 04/02/2017 [facility] Systolic (mm Hg) 106 04/02/2017 [facility] Diastolic (mm Hg) 75 04/02/2017 [facility] Temperature Oral (F) 98.0 F 04/02/2017 [facility] Height 167.64 cm 04/02/2017 [facility] BMI Calculated 45.82 04/02/2017 [facility] Weight 128.778 04/02/2017 [facility] Systolic (mm Hg) 109 01/27/2016 [facility] Diastolic (mm Hg) 65 01/27/2016 [facility] Systolic (mm Hg) 110 01/27/2016 [facility] Diastolic (mm Hg) 65 01/27/2016 [facility] Systolic (mm Hg) 111 01/27/2016 [facility] Diastolic (mm Hg) 72 01/27/2016 [facility] Respitory Rate 19 01/27/2016 [facility] Respitory Rate 16 01/27/2016 [facility] Respitory Rate 19 01/27/2016 [facility] Temperature Oral (F) 98.1 F 01/21/2016 [facility] Heart Rate 68 01/21/2016 [facility] BMI Calculated 45.29 01/21/2016 [facility] Weight 127.273 01/21/2016 [facility] Height 167.64 cm 01/21/2016 [facility] Weight 265 12/16/2013 [facility] Systolic (mm Hg) 115 12/16/2013 [facility] Diastolic (mm Hg) 65 12/16/2013 [facility] Heart Rate 75 12/16/2013 [facility] Temperature Oral (F) 96.5 F 12/16/2013 [facility] Weight 270 02/28/2013 [facility] Temperature Oral (F) 97.6 F 02/28/2013 [facility] Respitory Rate 18 02/28/2013 [facility] Systolic (mm Hg) 119 02/28/2013 [facility] Diastolic (mm Hg) 67 02/28/2013 [facility] Heart Rate 87 02/28/2013 [facility] Weight 259 01/02/2013 [facility] Height 66 1 [facility] Temperature Oral (F) 98.2 F 01/02/2013 [facility] Systolic (mm Hg) 113 01/02/2013 [facility] Diastolic (mm Hg) 64 01/02/2013 [facility] Heart Rate 82 01/02/2013 [facility] Respitory Rate 18 01/02/2013 [facility] Encounters Location Location Details Encounter Type Encounter Number Reason For Visit Attending Provider ADM Date DC Date Status Source [facility] Office Visit [id number] Mando Morris MD 12/16/2013 12/16/2013 [facility] Outpatient [id number] RAVI LE 01/21/2016 Active [facility] Outpatient [id number] Ravi Le 01/21/2016 01/22/2016 [facility] Outpatient [id number] RAVI LE 01/27/2016 Active [facility] Day Surgery [id number] Ravi Le 01/27/2016 01/27/2016 [facility] Outpatient [id number] RAVI LE 02/04/[address] [facility] Outpatient [id number] RAVI LE 02/04/[address] [facility] Outpatient [id number] JENNIFER GRAVES 07/27/2016 Active [facility] Outpatient [id number] VADIM GONZALEZ 09/08/2016 Active [facility] Outpatient [id number] VADIM GONZALEZ 10/07/2016 Active [facility] Outpatient [id number] VADIM GONZALEZ 12/08/2016 Active [facility] Outpatient [id number] VADIM GONZALEZ 04/02/2017 Active [facility] Primary Care [facility] Outpatient [id number] Vadim Gonzalez 04/02/2017 04/03/2017 [facility] Primary Care [facility] Phone Message [id number] 04/22/2017 04/24/2017 [facility] Outpatient [id number] AKUVI ELHOR GBITO 05/20/2017 Active [facility] Primary Care [facility] Outpatient [id number] Akuvi Elhor Gbito 05/20/2017 05/21/2017 [facility] Outpatient [id number] AKUVI ELHOR GBITO 06/21/2017 Active [facility] Primary Care [facility] Outpatient [id number] Akuvi Elhor Gbito 06/21/2017 06/22/2017 [facility] Primary [facility] Phone Message [id number] 06/25/2017 06/27/2017 [facility] Primary [facility] Outside Medical Records [id number] 07/07/1907/08/2017 [facility] Primary [facility] Phone Message [id number] 08/10/2017 08/12/2017 [facility] Phone Message [id number] 08/19/2017 08/21/2017 [facility] Phone Message [id number] 09/17/2017 09/19/2017 [facility] Phone Message [id number] 09/28/2017 09/30/2017 [facility] Phone Message [id number] 09/28/2017 09/30/2017 [facility] Phone Message [id number] 10/18/2017 10/20/2017 [facility] Phone Message [id number] 10/21/2017 10/23/2017 [facility] Outpatient [id number] AKUVI ELHOR GBITO 02/14/2018 Active [facility] Primary [facility] Outpatient [id number] Akuvi Elhor Gbito 02/14/2018 02/15/2018 [facility] Dia Services [id number] Akuvi Elhor Gbito 02/14/2018 02/15/2018 [facility] [place] Outpatient [id number] VADIM GONZALEZ 03/10/2018 Active [facility] Pre-Reg [id number] Vadim Gonzalez 03/10/2018 03/10/2018 [facility] Outpatient [id number] VADIM GONZALEZ 03/11/2018 Active [facility] [place] Outpatient [id number] Vadim Gonzalez 03/11/2018 03/12/2018 [facility] Primary [facility] Phone Message [id number] 03/23/2018 03/25/2018 [facility] Outpatient [id number] VADIM GONZALEZ 04/06/2018 Active [facility] [place] [facility]ulatory Pre-Reg [id number] Vadim Gonzalez 04/06/2018 04/06/[address] [facility] Phone Message [id number] 05/24/2018 05/26/[address] [facility] Between Visit [id number] 07/25/2018 07/26/2018 Medical Group [facility] Outpatient Imaging [facility] Di[facility] Services [id number] Kirill Brock 08/19/2018 08/20/2018 [facility] Between Visit [id number] 12/19/2018 12/20/2018 [facility] Outpatient [id number] Vadim Gonzalez 01/26/2019 Active [facility] Ambulatory Pre-Reg [id number] Vadim Gonzalez 01/26/2019 01/26/2019 [facility] Outpatient [id number] Vadim Gonzalez 02/24/2019 Active [facility] Outpatient [id number] Vadim Gonzalez 02/24/2019 02/25/2019 [facility] Between Visit [id number] 02/27/2019 02/28/2019 [facility] Outpatient [id number] Jennifer Graves Jr 04/20/2019 Active [facility] Outpatient [id number] Jennifer Graves Jr 04/20/2019 04/21/2019 Medical [facility] Family Medicine [facility] Between Visit [id number] 09/27/2019 09/28/2019 Medical [facility] Procedures Procedure Code Date Perfomer Comments Source Liposuction [id number] 06/13/2018 Medical [facility] Laparoscopic cholecystectomy 4 [id number] 01/27/2016 [facility] [id number] [facility] [id number] 02/12/2013 [facility] Group,[facility] Cerclage of cervix<sup>1</sup> [id number] 05/23 and Medical Group,[facility] Gallbladder<sup>2</sup> [id number] 000 Jan 2016 [facility], [facility] [place] [id number] [facility] and [facility] Assessment and Plan Date Source Extracted from:Title: Clinical Document Author: Trav Lizama MD Date: 01/27/16 DATE OF PROCEDURE: 01/27/2016. PREOPERATIVE DIAGNOSIS: Symptomatic gallstones. POSTOPERATIVE DIAGNOSIS: Symptomatic gallstones. TECHNICAL PROCEDURE PERFORMED: Laparoscopic cholecystectomy. SURGEON: Trav Lizama M.D. ANESTHESIA: General endotracheal. SURGICAL WOUND CLASSIFICATION: Clean contaminate. OPERATIVE TIME: 30 minutes. ESTIMATED BLOOD LOSS: Minimal. FLUID REPLACEMENT: Per anesthesia. SPECIMENS SENT FOR PATHOLOGY: Gallbladder. COMPLICATIONS: None. FINDINGS: 1. Gallstones. 2. Well-visualized critical view.. CONDITION: To recovery, stable. POSTOPERATIVE PLAN: To the floor INDICATIONS: A 35-year-old lady that presented to my general surgery clinic with abdominal pain. At this time, the history and physical as well as laboratory studies was consistent with diagnosis of symptomatic gallstones, therefore, the option of laparoscopic versus open cholecystectomy was offered to the patient. Risks and benefits of the procedure were explained and the patient voiced understanding and consented to procedure. OPERATIVE NARRATIVE: Patient was taken the operating room, placed on the operating table, intubated by anesthesia. The abdomen was prepped and draped in the usual sterile fashion. A timeout was called and the correct patient, as well as procedure was verified. The patient had SCDs on for thromboembolic prophylaxis and received antibiotics within 1 hour of the incision. Umbilical region was identified, 0.5% Marcaine was infused followed 1-cm incision followed by dissection of the fascia. The fascia was grasped with a Ruperto clamp and a Veress was place, confirmed with a positive saline drop test. Pneumoperitoneum was achieved with CO2 gas up to 15 mmHg. A 1-cm trocar was placed in the umbilical incision. The patient was placed in reverse Trendelenburg position airplaned to the left; 0.5 cm trocars were introduced in the epigastrium, right upper quadrant right periumbilical regions under direct visualization. The gallbladder was identified. It was grasped at the fundus and retracted to the head, infundibulum was identified, grasped and retracted towards the legs, exposing the triangle of Calot. The cystic duct was identified, it was dissected out from all surrounding structures, clipped proximally 3 times, distally once, transected in between. Of note, a well visualized critical view was identified; therefore we bypassed cholangiogram. The dissection continued to identify the cystic artery, it was dissected out from all surrounding structures, clipped proximally twice, distally once, and transected in between. The gallbladder was then elevated off the liver bed using electrocautery. It was placed in the Endopouch bag and removed from the abdomen through the umbilical port. The liver bed was inspected, all residual bleeding was identified and controlled. The abdomen was irrigated with copious amounts water until clear return was achieved. The patient was placed flat and all residual irrigation was suctioned out. The pneumoperitoneum was decom pressed and the fascia at the umbilical port was closed using 0 Vicryl in a [id number] manner, and the skin was closed using 4-0 Monocryl in running subcuticular manner. The skin and three 5-mm ports were closed using 4-0 Monocryl in simple U-stitch manner. The patient was extubated in the operating room and transferred to recovery in stable condition. All instrument and laparotomy counts were correct. 01/27/2016 [facility] Plan of Care No Data Provided for This Section Social History Social History Date Source Social History TypeResponse Substance Abuse Use: None. Alcohol Current, Type Wine, Liquor. Frequency: 1-2 times per month. Smoking Status Never smoker; Exposure to Tobacco Smoke None; Cigarette Smoking Last 365 Days No; Reg Smoking Cessation Counseling No 01/21/2016 [facility] Social History TypeResponse Substance Abuse Use: None. Alcohol Current, Type Wine, Liquor. Frequency: 1-2 times per month. Smoking Status Never smoker; Exposure to Tobacco Smoke None; Cigarette Smoking Last 365 Days No; Reg Smoking Cessation Counseling No entered on: 03/11/18 01/21/2016 [facility] Social History TypeResponse Alcohol Current, Type Wine, Liquor. Frequency: 1-2 times per month. Substance Abuse Use: None. Smoking Status Never smoker; Exposure to Tobacco Smoke None; Cigarette Smoking Last 365 Days No; Reg Smoking Cessation Counseling No entered on: 04/20/19 01/21/2016 [facility] Family History No Data Provided for This Section Advance Directives No Data Provided for This Section Functional Status No Data Provided for This Section
[2019-11-27 17:13] VITALS: BP 129/81
[2019-11-27 17:14] VITALS: BP 129/81
[2019-11-27] MEDS: SODIUM CHLORIDE 0.9% 1000ML 1,000 ML IV SCH (17:40)
--- NOTE | 2019-11-27 19:28 | NUR ---
Received pt in bed awake a/o x3. No c/o at this time,states might want pain meds soon before bedtime. Bed in low and locked position, IVF infusing no diff. Call light and personal items with in reach. Bedside report completed, will cont to mon.
[2019-11-27 19:40] VITALS: BP 104/72
[2019-11-27] MEDS: ONDANSETRON HCL INJ 2MG/ML 2ML 2 MG/ML VIAL IV PRN (20:30)
[2019-11-27] MEDS: MORPHINE SULFATE 2 MG/ML SYR 1ML IV PRN (20:30)
[2019-11-27] MEDS: ENOXAPARIN SOD INJ 40 MG/0.4 ML SYR SC SCH (22:00)
[2019-11-27 23:04] VITALS: BP 104/72
[2019-11-28] MEDS: MORPHINE SULFATE 2 MG/ML SYR 1ML IV PRN ×2 (00:27→05:40)
[2019-11-28] MEDS: SODIUM CHLORIDE 0.9% 1000ML 1,000 ML IV SCH ×3 (00:35→08:04)
[2019-11-28 01:39] VITALS: BP 112/68
[2019-11-28] MEDS: ONDANSETRON HCL INJ 2MG/ML 2ML 2 MG/ML VIAL IV PRN (05:40)
[2019-11-28 06:30] LABS: ALANINE AMINOTRANSFERASE 12 IU/L (0-55); ALBUMIN 3.7 g/dL (3.5-5.0); ALBUMIN/GLOBULIN RATIO 1.4 (0.8-2.0); ALKALINE PHOSPHATASE 68 IU/L (40-150); ANION GAP 13.7 mmol/L (8-16); BLOOD UREA NITROGEN 9 mg/dL (7-26); BUN/CREATININE RATIO 11 (6-25); CALCIUM 8.2 mg/dL (8.4-10.2); CARBON DIOXIDE 22 mmol/L (22-29); CHLORIDE 106 mmol/L (98-107); CREATININE, SERUM 0.84 mg/dL (0.57-1.11); EST GLOMERULAR FILTRATION RATE > 60 ML/MIN (60-); GLUCOSE 84 mg/dL (74-118); MAGNESIUM 1.8 MG/DL (1.3-2.1); PHOSPHORUS 2.9 MG/DL (2.3-4.7); POTASSIUM 4.7 mmol/L (3.5-5.1); SODIUM 137 mmol/L (136-145)
[2019-11-28 06:41] LABS: BASOPHILS % 0.3 % (0.0-1.0); EOSINOPHILS % 0.3 % (0.0-6.0); HEMATOCRIT 37.3 % (34.2-44.1); HEMOGLOBIN 12.1 g/dL (12.0-16.0); LYMPHOCYTES # (AUTO) 1.5 (1.0-3.2); LYMPHOCYTES % 14.4 % (18.0-39.1); MEAN CORPUSCULAR HEMOGLOBIN 27.5 pg (28-32); MEAN CORPUSCULAR HGB CONC 32.4 g/dL (31-35); MEAN CORPUSCULAR VOLUME 84.8 fL (81-99); MONOCYTES # (AUTO) 0.8 (0.2-0.8); MONOCYTES % 7.2 % (4.4-11.3); NEUTROPHILS # (AUTO) 8.2 (2.1-6.9); NEUTROPHILS % 77.1 % (38.7-80.0); PLATELET COUNT 268 x10e3/uL (140-360); RED CELL DISTRIBUTION WIDTH 13.9 % (11.7-14.4)
[2019-11-28 06:52] VITALS: BP 109/69
[2019-11-28] MEDS ORDERED: HYDROCODONE/APAP 7.5MG-325MG 1 EA TAB PO PRN (07:00)
--- NOTE | 2019-11-28 07:00 | NUR ---
RECEIVED PATIENT RESTING IN BED NO S/S OF DISTRESS. BED LOW, WHEELS LOCKED, SIDE RAILS X2. CALL LIGHT IN REACH WILL CONTINUE TO MONITOR PATIENT.
[2019-11-28 07:57] VITALS: BP 112/77
[2019-11-28] MEDS: ENOXAPARIN SOD INJ 40 MG/0.4 ML SYR SC SCH (08:08)
--- NOTE | 2019-11-28 09:03 | NUR ---
Progress Note S: No major c/o O: AF,VSS Labs reviewed- wnl General- no acute distress Abd- soft, incisions c/d/i A/P: POD 1, s/p Lap sleeve gastrectomy -clears, ambulate, IS, OOB to chair -DC home per Dr. Alonzo -f/u with me in 1-2 weeks
[2019-11-28 09:16] VITALS: BP 112/77
[2019-11-28] MEDS ORDERED: KETOROLAC TROMETHAMINE 30 MG/ML VIAL IV ONE (10:15)
--- NOTE | 2019-11-28 10:16 | Discharge Summary ---
ADMITTING DIAGNOSES: 1. Extreme obesity, BMI of 48, complicating underlying polycystic ovarian disease and psoriasis. 2. Polycystic ovarian disease. 3. Psoriasis. 4. Depression with anxiety. DISCHARGE DIAGNOSES: 1. Status post laparoscopic sleeve gastrectomy on November 27, 2019. 2. Extreme obesity, BMI of 48 complicating underlying polycystic ovarian disease and psoriasis. 3. Polycystic ovarian disease. 4. Psoriasis. HOSPITAL COURSE: This is a 39-year-old white woman, who was initially admitted to [facility] with diagnosis of extreme obesity, BMI of 48 that was complicating with an underlying polycystic ovarian disease and psoriasis vulgaris. During this hospitalization, patient underwent successful laparoscopic vertical sleeve gastrectomy that was performed by her bariatric surgeon namely, Dr. Riki Gilbert. The patient's brief hospitalization was unremarkable. On discharge, she was tolerating a clear liquid diet. Also prior to discharge, she was experiencing belching. The patient's complete blood count and comprehensive metabolic profile were within normal limits on discharge. CONDITION: The patient's condition on discharge is stable. DISCHARGE MEDICATIONS: 1. Acetaminophen with codeine 300/30 mg one tab by mouth every 4 hours p.r.n. pain 30 prescribed, no refills. 2. Ondansetron 4 mg by mouth every 6 hours p.r.n. nausea and vomiting, 20 prescribed, no refills. 3. Otezla 30 mg b.i.d. 4. Calcipotriene/betamethasone 0.005%/0.064% one drop to each eye at night. 5. Fexofenadine 60 mg daily. 6. Latanoprost 2.5 one drop to each eye daily. 7. Metformin 1000 mg b.i.d. 8. Norethindrone 0.35 mg at bedtime. 9. Spironolactone 100 mg daily. 10. Venlafaxine 150 mg daily. FOLLOWUP INSTRUCTIONS: The patient is instructed to follow up with Dr. Riki Gilbert in one week and with her primary care physician in 2 weeks. MD SANYA Go/SINAN /[id number] cc: Riki Gilbert MD
[2019-11-28] MEDS ORDERED: TYLENOL # 31 EA PO (11:00)
[2019-11-28] MEDS ORDERED: ZOFRAN4 MG PO (11:01)
--- NOTE | 2019-11-28 11:28 | NUR ---
Nutrition Screen Note RD Recommendation for Physician: - Advance to full liquids per MD Plan of Care: RD following, monitoring for tolerance and adequacy - Diet education provided 11/27 Nutrition reason for involvement: MD Consult- post gastric sleeve diet education Primary Diagnose(s): gastric sleeve surgery PMH: obesity, PCOS, depression with anxiety, psoriasis Ht: 66 in Wt: 295 lb BMI: 47.6 kg/m2 IBW: [address] Assessment: (11/27) 39 YOF admitted for gastric sleeve surgery, pt seen today today for post op diet education. Pt reports that she was seen by a RD for diet education and is familiar with the post op diet and protein supplements. Reviewed diet progression with pt, reviewed vitamin and mineral recommendations, and answered all questions and concerns at time of visit. Pt provided with diet education materials. Chart reviewed. Labs and meds reviewed. Current Diet: bariatric CLD Malnutrition Evaluation (11/28/19) The patient does not meet criteria for a specified degree of malnutrition at this time. Will re-evaluate at follow-up as appropriate. Diet Education Needs Assessment: Diet education indicated, pt receptive and education provided 11/27. Learner(s): pt Barriers: none Cultural/Language Modifications: none Readiness: ready Method: handout, discussion Topics: post op gastric bypass diet progression Understanding/Compliance: good Diet tolerance: tolerating CLD Nutrition Care Level: low Signed: Ольга Norton RD, LD, [facility]
[2019-11-28 11:40] VITALS: BP 119/78
[2019-11-28] MEDS ORDERED: KETOROLAC TROMETHAMINE 30 MG/ML VIAL IM NR (12:00)
--- NOTE | 2019-11-28 12:00 | NUR ---
REMOVED PATIENTS IV. CATHETER TIP INTACT AND PRESSURE DRESSING APPLIED.
--- NOTE | 2019-11-28 15:30 | NUR ---
PATIENT DISCHARGED FROM FACILITY. PATIENT GATHERED ALL PERSONAL BELONGINGS, DISCHARGE INSTRUCTIONS AND FOLLOW UP INFORMATION. PATIENT LEFT IN STABLE CONDITION.
== END 2019-11-28 15:51 | disposition home or self-care (01) | DRG 621 ==
LOC: OR 09:34 → PACU V 16:54 → MED/SURG 17:07
PROVIDERS: ADMIT Internal Medicine; ATTEND Internal Medicine
PROC: 0DB64Z3 Excision of Stomach, Percutaneous Endoscopic Approach, Vertical (ICD-10-PCS; principal; 2019-11-27 11:30)
DX: E66.01 Morbid (severe) obesity due to excess calories (principal); E66.1 Drug-induced obesity; Z68.42 Body mass index [BMI] 45.0-49.9, adult; E28.2 Polycystic ovarian syndrome; L40.9 Psoriasis, unspecified; F41.8 Other specified anxiety disorders; F32.9 Major depressive disorder, single episode, unspecified; F41.9 Anxiety disorder, unspecified; I10 Essential (primary) hypertension; E78.5 Hyperlipidemia, unspecified; Z11.59 Encounter for screening for other viral diseases
CPT/HCPCS: 36415; 80048; 80053; 81025; 83735; 84100; 85025; J0690; J1100; J1170; J1650; J1885; J2001; J2250; J2270; J2405; J2550; J2710; J2765; J3010; J7030; U0002